=== PATIENT | female | born 1980 | race Caucasian/White ===

== ENCOUNTER 2023-04-17 09:11 | Emergency (ER) | payer BC ==
[~2023-04-17] VITALS: Ht 175.3 cm; Wt 107.5 kg
[2023-04-17] MEDS ORDERED: CYCL30DR EACHEYE (09:24)
[2023-04-17] MEDS ORDERED: NIFE-35 PO (09:24)
[2023-04-17] MEDS ORDERED: ESCI20TA PO (09:24)
[2023-04-17] MEDS ORDERED: FAMOTIDINE. 20 MG/2 ML VIAL IV ONE ×2 (09:45→10:01)
[2023-04-17] MEDS ORDERED: IV NORMAL SALINE 1000 ML BAG IV ONE (09:45)
[2023-04-17] MEDS ORDERED: ONDANSETRON 4 MG/2 ML VIAL IV ONE (09:45)
[2023-04-17] MEDS ORDERED: KETOROLAC TROMETHAMINE 15 MG INJ IVP ONE (09:45)
[2023-04-17 09:56] LABS: HEMATOCRIT 43.9 % (31.2-41.9); MEAN CORPUSCULAR HEMOGLOBIN 31.2 uug (24.7-32.8); MEAN CORPUSCULAR VOLUME 90.8 fL (75.5-95.3); PLATELET COUNT (AUTO) 366 K/uL (179-408)
[2023-04-17] MEDS ORDERED: ONDANSETRON 4 MG/2 ML VIAL ONE (10:01)
[2023-04-17] MEDS ORDERED: KETOROLAC TROMETHAMINE 30 MG INJ ONE (10:01)
[2023-04-17 10:10] LABS: CARBON DIOXIDE 27 mmol/L (21-32); CHLORIDE 99 mmol/L (98-107); CREATININE 0.7 mg/dL (0.6-1.3); GLUCOSE 111 mg/dL (74-106); POTASSIUM 3.5 mmol/L (3.5-5.1); UREA NITROGEN, BLOOD 7 mg/dL (7-18)
[2023-04-17 10:16] LABS: ALANINE AMINOTRANSFERASE 19 U/L (14-59); ALKALINE PHOSPHATASE 116 U/L (50-136); ASPARTATE AMINOTRANSFERASE < 5 U/L (15-37); BILIRUBIN,DIRECT 0.1 mg/dL (0.0-0.2); BILIRUBIN,TOTAL 0.3 mg/dL (0.2-1.0); LIPASE 82 U/L (73-393); TOTAL PROTEIN, SERUM 7.9 g/dL (6.4-8.2)
--- NOTE | 2023-04-17 10:45 | NUR ---
pt reports nausea is gone and pain down to a 4-5/10.
--- NOTE | 2023-04-17 11:13 | NUR ---
PO challenge done, no adverse effects. informed
[2023-04-17 11:37] LABS: *BILIRUBIN,URIN NEGATIVE (NEGATIVE); *COLOR,URINE YELLOW (YELLOW); *KETONES,URINE NEGATIVE (NEGATIVE); *UROBILINOGEN,URINE 0.2 E.U./dl (NORMAL); LEUKOCYTE ESTERASE ,URINE NEGATIVE (NEGATIVE); NITRITE, URINE NEGATIVE (NEGATIVE); UGLUCOSE NEGATIVE (NEGATIVE)
[2023-04-17 11:38] LABS: *BLOOD, URINE TRACE (NEGATIVE)
[2023-04-17] MEDS ORDERED: ONDA4TAB11 PO (11:44)
--- NOTE | 2023-04-17 11:58 | NUR ---
Removed IV intact, site okay, bandaged. Gave pt RX and d/c instructions, pt verbalized understanding.
[2023-04-17 12:09] LABS: *CLARITY,URINE EH049250 (CLEAR); BACTERIA,URINE NONE SEEN /HPF (NONE SEEN); RBC,URINE 0-3 /HPF (0-3); SQUAMOUS EPITHELIAL CELL,UR FEW /HPF (NONE SEEN); WBC,URINE NONE SEEN /HPF (0-3)
[2023-04-17 12:52] VITALS: BP 137/89
== END 2023-04-17 12:08 | disposition home or self-care (01) ==
LOC: ER 09:17
DX: R51.9 Headache, unspecified (principal); R11.10 Vomiting, unspecified; R19.7 Diarrhea, unspecified; R10.2 Pelvic and perineal pain; Z88.2 Allergy status to sulfonamides; Z79.899 Other long term (current) drug therapy
CPT/HCPCS: 99284; 96374; 96361; 96375; 80076; 80048; 81001; 83690; 85025; 84702; 36415; J3490; J1885; J2405; J7040; A4663